=== PATIENT | male | born 1985 | race Caucasian/White ===

== ENCOUNTER 2017-06-13 13:44 | Emergency (ER) | payer SELFPAY ==
[2017-06-13 13:53] VITALS: BP 118/55; BMI 30.4
--- NOTE | 2017-06-13 14:40 | DR.CP ---
HPI - Time Seen Time seen: 14:30 - PCP Primary Care Physician: MOISES - HPI Comment HPI Comment: PAIN RT CHEST ALSO. GETTING WORSE. - Complaint Chief Complaint Doctor Comments: FEVER, COUGH, CONGESTION AND VOMITING TIMES 2 DAYD. Chief Complaint:: PT C/O COMING HOME FROM WORK ON TUESDAY AND NOT FEELING WELL AND THINKING THAT HE HAD THE FLU.. PT C/O HURTING IN HIS RIGHT LUNG WHEN HE TAKES A DEEP BREATHE, PT C/O RUNNING A FEVER FOR THE LAST 2 DAYS ,,, PT C/O ABD AND NAUSEA AND VOMITTING TIMES ONE ON TUESDAY WHEN HE EATS.. BR - Reviewed Nurses Notes Review: Yes - Source History Provided: Patient - Mode of Arrival Mode of Arrival: Ambulatory - Timing Onset of Chief Complaint: 06/10/17 Came on: Suddenly Pain: Present Now - Duration Duration: Constant Duration: Weeks - Context Onset: At rest Cardiac Risk Factors: None PE Risk Factors: None History of: None Prehospital Care: None - Quality Quality: Sharp, Aching - Severity Severity: Moderate - Modifying Factors Worsens: Coughing, Breathing, Movement Impoves: Other (NOT TRY.) - Associated Signs and Symptoms Associated Signs and Symptoms: Shortness of Breath PMH - PMH Past Medical History: No Past Surgical History: Yes Surgical History: Appendectomy Past Surgical History Comment: BROKE RIGHT ARM. - Family History History of Family Medical Conditions: No - Social History Does patient currently use any type of tobacco product: No Have you used tobacco products in the last 12 months: No Type of Tobacco Use: None Does any household member use tobacco: No Alcohol Use: None Do you use any recreational Drugs:: No Lives With: Family Lives Where: Home - infectious screening In the last 2 months have you had wt loss of >10#?: NO Have you had fever, night sweats or hemotysis?: No Have you traveled outside the country in the last 6 months?: No Isolation: Airborn/Negative Pressure ROS - Review of Systems Constitutional: Chills, Fever, Weakness, Fatigue Eyes: No Symptoms Reported. negative: Eye Pain, Discharge ENTM: Nose Congestion, Throat Pain. negative: Ear Pain, Nose Discharge Respiratoy: Productive Cough. negative: Short of Breath, Wheezing, Hemoptysis Cardiovascular: No Symptoms Reported Gastrointestinal/Abdominal: No Symptoms Reported Genitourinary: No Symptoms Reported Neurological: Headache, Weakness, Dizziness Musculoskeletal: Muscle Pain Integumentary: No Symptoms Reported Hematologic/Lymphatic: No Symptoms Reported Endocrine: No Symptoms Reported All Other Systems: Reviewed and Negative PE - Vitals Vitals: Temperature 100.8 F Pulse Rate 73 Respiratory Rate 18 Blood Pressure 118/55 O2 Sat by Pulse Oximetry 98 - General Limitations: No Limitations General Appearance: Alert - Head Head Exam: Normal Inspection - Eyes Eye exam: Normal Appearance - ENT ENT Exam: Normal External Ear Exam. negative: Normal Oropharynx (THROAT RED), TM's Normal Bilaterally (TM BULGING.) - Chest Chest Inspection: Symmetric Chest Wall Rise - Respiratory Respiratory Exam: Normal Lung Sounds Bilat Respiratory Exam: Bilateral Clear to Auscultation - Cardiovascular Cardiovascular Exam: Regular Rate, Normal Rhythm, Normal Heart Sounds - Abdominal Exam Abdominal Exam: Normal Bowel Sounds, Soft. negative: Tenderness - Extremities Extremities Exam: Normal Inspection - Back Back Exam: Normal Inspection - Neurologic Neurological Exam: Alert, Oriented X3 - Psychiatric Psychiatric Exam: Normal Affect, Normal Mood - Skin Skin Exam: Normal Color MDM - Additional Information Additional Information Obtained From: Family - Differential Diagnosis Differential Diagnosis: Pneumonia (BRONCHITIS, INFLUENZA, ) Course - Treatment Treatment: SEE ORDERS. - Education/Counseling Education/Counseling: Patient, Family, Education Educated On: Diagnosis, Needs for Follow Up ROR - Labs Reviewed Laboratory Results Reviewed?: Yes Laboratory: Influenza Type A (PCR) Positive (NEGATIVE) A 06/13/17 14:10 Influenza Type B (PCR) Negative (NEGATIVE) 06/13/17 14:10 S. pyogenes (TEM-PCR) Not detected (NOT DETECT) 06/13/17 14:10 - XRAY XRAY Interpreted by: Radiologist XRAY Findings: REPORT DISCUSS WITH PATIENT. - Diagnosis Discharge Problem: Influenza, Bronchitis - Discharge Plan Disposition: HOME, SELF-CARE Condition: Stable Prescriptions: Amoxicillin [Amoxil 875 mg] 875 mg PO Q12H #20 tab Benzonatate [TESSALON PERLES *] 200 mg PO TID PRN #30 cap PRN Reason: Cough Oseltamivir Phosphate [Tamiflu] 75 mg PO BID #10 cap - Follow ups/Referrals Follow ups/Referrals: [facility],None [Primary Care Provider] - 3 days - Instructions Instructions: Influenza, Adult, [id number], Acute Bronchitis, [id number]
--- NOTE | 2017-06-13 15:13 | RAD ---
HISTORY: Pleuritic right-sided chest pain Study: PA and lateral chest Comparison: None Findings: The heart is upper limits of normal. There are low lung volumes without definite lobar mass or consol idation. There is no effusion or pneumothorax. Osseous structures appear intact. IMPRESSION: No definite acute cardiopulmonary disease. Reported By:
== END 2017-06-13 15:36 | disposition home or self-care (01) ==
LOC: ER 14:15
DX: J40 Bronchitis, not specified as acute or chronic (principal); J10.1 Influenza due to other identified influenza virus with other respiratory manifestations
CPT/HCPCS: 71046; 87502; 87651; 99282; 99284